=== PATIENT | female | born 1985 | race Caucasian/White ===

== ENCOUNTER → 2017-02-15 | Outpatient (CLI) | payer OTHER ==
--- NOTE | 2017-02-15 07:56 | US ---
EXAMINATION TYPE: US abdomen complete DATE OF EXAM: 02/15/2017 COMPARISON: NONE CLINICAL HISTORY: Abd Pain R10.84. Pt states epigastric pain EXAM MEASUREMENTS: Liver Length: 14.7 cm Gallbladder Wall: 0.2 cm CBD: 0.3 cm Spleen: 9.2 cm Right Kidney: 12.5 x 3.6 x 4.2 cm Left Kidney: 10.4 x 5.5 x 4.4 cm Pancreas: wnl Liver: wnl Gallbladder: wnl Evidence for sonographic Rao's sign: No CBD: wnl Spleen: wnl Right Kidney: wnl Left Kidney: wnl Upper IVC: wnl Abd Aorta: wnl No abnormality visualized to account for pt's symptoms The liver is homogenous. The intrahepatic portion of the IVC and visualized abdominal aorta are with in normal limits. There is no evidence of cholelithiasis. Common bile duct is unremarkable. The vi sualized portions of the pancreas are homogenous. The spleen is unremarkable. Kidneys are symmetric and free of hydronephrosis. No renal lesions are seen. IMPRESSION: No significant abnormality is seen to account for patient's symptoms.
== END | disposition home or self-care (01) ==
LOC: RADUSWWP 07:32
PROVIDERS: ATTEND Family Medicine
DX: R10.84 Generalized abdominal pain (principal)
CPT/HCPCS: 76700

== ENCOUNTER 2021-09-11 01:10 | Outpatient (CLI) | payer OTHER ==
[2021-09-11 02:06] VITALS: BP 127/83; PULSE 103; RESP 16; TEMP 96.6
--- NOTE | 2021-09-11 10:29 | P.MSEPDOC ---
Presenting Problems - Arrival Data Date of Arrival on Unit: 09/11/21 Time of Arrival on Unit: 01:11 Mode of Transport: Ambulatory - Complaint OB-Reason for Admission/Chief Complaint: Possible Onset of Labor Comment: Pt states contractions that started around 2300, every 10 minutes, pain 5/10. Plan to this time Medical History - Information : 3 Para: 1 Term: 1 : 0 Abortions: Spontaneous or Elective: 1 Number of Living Children: 1 - Gestational Age Gestational Age by YANG (wks/days): 40 Weeks and 1 Days - History Complications: Prior Review of Systems - Review of Systems Constitutional: No problems Breast: No problems ENT: No problems Cardiovascular: No problems Respiratory: No problems Gastrointestinal: No problems Genitourinary: No problems Musculoskeletal: No problems Neurological: No problems Skin: No problems Vital Signs - Temperature Temperature: 96.6 F Temperature Source: Temporal Artery Scan - Pulse Right Brachial Pulse Rate: 103 Pulse Assessment Method: Automatic Cuff - Respirations Respiratory Rate: 16 Oxygen Delivery Method: Room Air O2 Sat by Pulse Oximetry: 99 - Blood Pressure Right Arm Blood Pressure: 127/83 Blood Pressure Mean: 97 Blood Pressure Source: Automatic Cuff Medical Screen Scoring - Cervical Exam Dilation (cm): 0 Effacement (%): 0 Station: -3 Membranes: Intact - Uterine Contractions Frequency From (mins): 5 Frequency To (mins): 6 Duration From (seconds): 70 Duration To (seconds): 90 Intensity: Moderate Resting: Soft to palpation - Assessment - Baby A Baseline FHR: 125 Heart Rate - NICHD Category: Category I (Normal) Physician Notification - Physician Notified Physician Notified Date: 09/11/21 Physician Notified Time: 01:39 Physician: Toy Ayala New Order Received: Yes - Notification Comment Comment: Reported vag exam closed, reactive nst. Orders to d/c pt home, follow up with Dr. Tellez on Sunday as planned. Maternal Triage Index - Maternal Triage Index Presenting for scheduled procedure w/no complaint: No - Stat/Priority 1 Stat Priority 1: No - Urgent/Priority 2 Urgent Priority 2: No - Prompt/Priority 3 Prompt Priority 3: No - Non-Urgent/Priority 4 Non-Urgent Priority 4: Yes Criteria Met for Priority 4: Pt states contractions that started around 2300, every 10 minutes, pain 5/10. Plan to this time - Scheduled/Requesting Priority 5 Scheduled/Requesting Priority 5: No Disposition - Disposition OB Disposition: Discharge to home, Written follow up instructions reviewed Discharge Date: 09/11/21 Discharge Time: 01:39 I agree with the RN Medical Screening Exam: Yes Case reviewed; plan agreed upon as documented in EMR&OBIX.: Yes Diagnosis: RELATED CONDITIONS, UNSPECIFIED, THIRD TRIMESTER
== END 2021-09-11 01:39 | disposition home or self-care (01) ==
LOC: FBPOP 01:10
PROVIDERS: ATTEND Obstetrics & Gynecology
DX: O62.9 Abnormality of forces of labor, unspecified (principal); O09.523 Supervision of elderly multigravida, third trimester; Z3A.40 40 weeks gestation of pregnancy; Z88.1 Allergy status to other antibiotic agents
CPT/HCPCS: 59025; G0463; 99213

== ENCOUNTER 2021-09-11 22:05 | Inpatient (IN) | payer OTHER ==
[~2021-09-11 22:05] MED LIST: ROPIVACAINE 5MG/ML 20ML VIAL ONE; SODIUM CHLORIDE 0.9% 100 ML BAG ONE; fentaNYL (PF) 50 MCG/ML 5 ML AMP ONE
[2021-09-11] MEDS: LACTATED RINGERS 1,000 ML IV SCH (22:30)
[2021-09-11] MEDS ORDERED: TERBUTALINE 1 MG/ML VIAL SQ PRN (23:32)
[2021-09-11] MEDS ORDERED: CARBOPROST TROMETHAMINE 250 MCG/ML 1 ML AMP IM PRN (23:32)
[2021-09-11] MEDS ORDERED: LIDOCAINE 1% (PF) 10 MG/ML (30 ML SDV) SQ PRN (23:32)
[2021-09-11] MEDS ORDERED: OXYTOCIN 10 UNIT/ML 1 ML VIAL IM PRN (23:32)
[2021-09-11] MEDS ORDERED: METHYLERGONOVINE 0.2 MG/ML 1 ML AMP IM PRN (23:32)
[2021-09-11] MEDS ORDERED: BUTORPHANOL 1 MG/ML 1 ML VIAL IV PRN (23:41)
[2021-09-11] MEDS ORDERED: OXYTOCIN 30 UNITS/500 ML NS 30 UNIT in SALINE 1 500ML.BAG IV SCH (23:45)
[2021-09-12 00:08] LABS: Basophils % (A) 0 %; Eosinophils # (A) 0.1 k/uL (0-0.7); Eosinophils % (A) 1 %; HCT 39.3 % (34.0-46.0); HGB 13.7 gm/dL (11.4-16.0); Lymphocytes # (A) 1.4 k/uL (1.0-4.8); Lymphocytes % (A) 12 %; MCH 32.1 pg (25.0-35.0); MCHC 34.7 g/dL (31.0-37.0); MCV 92.4 fL (80.0-100.0); Mean Platelet Volume 8.7; Monocytes # (A) 0.7 k/uL (0-1.0); Monocytes % (A) 6 %; Neutrophils # (A) 8.8 k/uL (1.3-7.7); Neutrophils % (A) 80 %; Platelet Count 214 k/uL (150-450); RBC 4.26 m/uL (3.80-5.40); RDW 13.3 % (11.5-15.5); WBC 10.9 k/uL (3.8-10.6)
[2021-09-12] MEDS: LACTATED RINGERS 1,000 ML IV SCH ×3 (02:11→03:56)
--- NOTE | 2021-09-12 08:00 | P.HPOB ---
History of Present Illness H&P Date: 09/12/21 Chief Complaint: Early labor This is a 36-year-old female 3 para 1011 EDC 09/10/2021 at 40-2/7 weeks' gestation who presented last night in early spontaneous labor. Epidural has been placed. She denied vaginal bleeding or fluid leakage. Past medical history is essentially negative. Past surgical history section 2012 for nonreassuring heart tones, low transverse. Current medications vitamins daily. ALLERGIES include amoxicillin to which she reports a rash as a child. Family history significant for skin cancer. history is significant for blood type A positive, rubella status immune. VDRL testing, hepatitis B surface antigen, urine culture, HIV testing, gonorrhea and chlamydia cultures, group B strep cultures all negative. One-hour Glucola 146, three-hour GTT within normal limits. Social history patient is single, her boyfriend Surinder is present and involved. Former tobacco smoker, she denies alcohol or drug use. On exam patient is 5 foot 4 inches, 146 pounds, blood pressure 118/70 on admission, vital signs are stable and she is afebrile. The general physical exam is within normal limits. Cervix is at this time 8 cm dilated, 90% effaced, -1 station, vertex presentation. Artificial amniorrhexis reveals clear fluid. heart rate at this time is consistent with reactive NST, there are occasional subtle mild decelerations noted with uterine contractions. Uterine contractions are occurring every 5-6 minutes apart. Impression: 40-2/7 weeks intrauterine , previous section wishing , active labor. All signs currently reassuring. Plan: Continue close maternal and surveillance. Anticipate healthy vaginal after . Review of Systems Constitutional: Reports as per HPI Past Medical History Past Medical History: No Reported History History of Any Multi-Drug Resistant Organisms: None Reported Past Surgical History: Section Additional Past Surgical History / Comment(s): 12/23/2012 Past Anesthesia/Blood Transfusion Reactions: No Reported Reaction Past Psychological History: No Psychological Hx Reported Smoking Status: Never smoker Past Alcohol Use History: None Reported Past Drug Use History: None Reported - Past Family History Mother Family Medical History: No Reported History Medications and Allergies Home Medications Medication Instructions Recorded Confirmed Type Aspirin [Adult Low Dose Aspirin EC] 1 tab PO DAILY 09/11/21 09/11/21 History Pnv,Calcium 72/Iron/Folic Acid 1 tab PO DAILY 09/11/21 09/11/21 History [ Plus Tablet] Allergies Allergy/AdvReac Type Severity Reaction Status Date / Time amoxicillin Allergy Rash/Hives Verified 09/11/21 22:12 Exam Vital Signs Temp Pulse Resp BP Pulse Ox 09/11/21 23:36 97.0 F L 141 H 16 118/70 96 09/11/21 22:12 97.0 F L 141 H 16 118/70 96 Intake and Output 09/11/21 09/12/21 09/12/21 22:59 06:59 14:59 Other: Weight 65.771 kg 65.771 kg See dictation under HPI please Results Result Diagrams: 09/11/21 22:45 Abnormal Lab Results - Last 24 Hours (Table) 09/11/21 Range/Units 22:45 WBC 10.9 H (3.8-10.6) k/uL Neutrophils # 8.8 H (1.3-7.7) k/uL Assessment and Plan Assessment: Continue close surveillance. Anticipating successful . Time with Patient: Less than 30
[2021-09-12] MEDS ORDERED: diphenhydrAMINE 25 MG CAP PO PRN (13:17)
[2021-09-12] MEDS ORDERED: ACETAMINOPHEN TAB 325 MG TAB PO PRN (13:17)
[2021-09-12] MEDS ORDERED: ZOLPIDEM 5 MG TAB PO PRN (13:17)
[2021-09-12] MEDS ORDERED: LANOLIN CREAM 5 GM TUBE TOPICAL PRN (13:17)
[2021-09-12] MEDS ORDERED: HYDROCORTISONE 2.5% RECTAL CREAM 30 GM TUBE RECTAL PRN (13:17)
[2021-09-12] MEDS ORDERED: SIMETHICONE 80 MG CHEWABLE PO PRN (13:17)
[2021-09-12] MEDS ORDERED: diphenhydrAMINE ELIXIR 25 MG/10 ML CUP PO PRN (13:17)
[2021-09-12] MEDS ORDERED: diphenhydrAMINE 50 MG CAP PO PRN (13:17)
[2021-09-12] MEDS ORDERED: BENZOCAINE/MENTHOL SPRAY 1 GM/SPRAY AEROSOL TOPICAL PRN (13:17)
[2021-09-12] MEDS ORDERED: diphenhydrAMINE 50 MG/ML 1 ML VIAL IVP PRN ×2 (13:17)
--- NOTE | 2021-09-12 13:17 | P.PROBDLV ---
Vaginal Delivery Note - . Vaginal Delivery Note: This is a 36-year-old 3 para 1011 EDC 09/10/2021 at 40-2/7 weeks' gestation who presented from home with spontaneous amniorrhexis, wishing . Blood type is A+, rubella status immune, group B strep cultures negative. Please see my dictated history and physical for details. Oxytocin was started and titrated per hospital protocol. Epidural was placed per her request. She progressed to the first stage of labor and became completely dilated at 1120 hours. She began the second stage of labor at that time. With strong steady contractions ultimately station was made. Perineal body was prepped and draped in usual sterile fashion. The perineal yessy dy was very tense and distended, therefore a small midline episiotomy was performed. 's head delivered at 1255. There was no nuchal cord noted. The left or anterior shoulder was gently delivered from underneath the pubic symphysis at which time the oropharynx, nasopharynx, and external nares were all bulb suctioned. Patient was officially delivered of a liveborn male at 1256 hours. Umbilical cord was doubly clamped and ligated, he was handed to waiting nurses for evaluation where scores of 9 and 9 at one and 5 minutes respectively were given. Placenta delivered spontaneously, it was inspected and noted to be intact with trivascular cord at 1257 hrs. It is sent to pathology for evaluation. Careful inspection of the cervix, vagina, perineum, periurethral, and perirectal areas revealed a small second-degree laceration that was easily repaired in the usual fashion. All sponge needle and enhancement counts are correct at the end of this delivery. Fundus is firm and in the midline, symmetric and 18 week size. weight 8 lbs. 3 oz. or 3710 g. Patient is requesting circumcision for her infant son. She is allowed to begin the bonding experience with her and family.
[2021-09-12] MEDS: IBUPROFEN 600 MG TAB PO SCH ×2 (13:32→20:08)
[2021-09-12] MEDS: SENNOSIDES-DOCUSATE SODIUM 1 EACH TAB PO SCH (20:07)
[2021-09-13] MEDS: IBUPROFEN 600 MG TAB PO SCH ×3 (01:34→12:42)
[2021-09-13] MEDS: SENNOSIDES-DOCUSATE SODIUM 1 EACH TAB PO SCH (07:36)
--- NOTE | 2021-09-13 08:50 | P.DS ---
Providers Date of admission: 09/11/21 23:23 Expected date of discharge: 09/13/21 Attending physician: Ashlyn Tellez Primary care physician: Stated None Hospital Course: EDC 09/10/2021 at 40-2/7 weeks' gestation. Patient presented with spontaneous amniorrhexis, in early labor. Her preference was for , having had a previous section. She was thoroughly counseled regarding this decision. is unremarkable, rubella status immune, blood type B positive, group B strep cultures negative. Please see my dictated history and physical for details. Artificial amniorrhexis of a fore bag revealed clear fluid. Oxytocin was started and titrated per hospital protocol. Epidural was placed per her request. She did go on to deliver vaginally successfully a liveborn male infant with scores of 9 and 9 respectively weight 8 lbs. 3 oz. or 3710 g. There was a small midline episiotomy performed, repaired easily with repeat suture. Estimated blood loss 300 mL's. Please see dictated delivery note for details. This morning the patient is doing well. She is voiding, ambulating, passing flatus without difficulty. Vital signs are stable and she is afebrile. Breast- feeding is going well. [place] infant has been circumcised. Fundus is firm and in the midline, symmetric and 18 week size. Patient is judged to be in very good condition for discharge home. She will follow-up with me in the office in 6 weeks. I have reminded her no intercourse, tampons or douching. She will use [id number] Advil or Aleve, or Motrin as needed for pain. She will call with any fevers shakes or chills, foul smelling or copious lochia, with the passage of large blood clots, with any pain not alleviated by [id number]-[id number] products, or indeed with any concerns. We will discuss contraceptive options in the office when she follows up in 6 weeks. Continue vitamin daily. [place] infant will follow-up with gore maker as per recommendations. Plan - Discharge Summary Discharge Rx Participant: No New Discharge Prescriptions: No Action Pnv,Calcium 72/Iron/Folic Acid [ Plus Tablet] 1 tab PO DAILY Aspirin [Adult Low Dose Aspirin EC] 1 tab PO DAILY Discharge Medication List Aspirin [Adult Low Dose Aspirin EC] 1 tab PO DAILY 09/11/21 [History] Pnv,Calcium 72/Iron/Folic Acid [ Plus Tablet] 1 tab PO DAILY 09/11/21 [History] Follow up Appointment(s)/Referral(s): Ashlyn Tellez MD [STAFF PHYSICIAN] - 6 Weeks Discharge Disposition: HOME SELF-CARE
[2021-09-13 16:20] VITALS: BP 107/68; PULSE 97; RESP 16; TEMP 98.5
== END 2021-09-13 16:45 | disposition home or self-care (01) | DRG 807 ==
LOC: FBPOP 22:05 → 4FBP 23:23
PROVIDERS: ADMIT Obstetrics & Gynecology; ATTEND Obstetrics & Gynecology
PROC: 10E0XZZ Delivery of Products of Conception, External Approach (ICD-10-PCS; principal; 2021-09-12)
PROC: 10907ZC Drainage of Amniotic Fluid, Therapeutic from Products of Conception, Via Natural or Artificial Opening (ICD-10-PCS; 2021-09-12)
PROC: 4A0HXCZ Measurement of Products of Conception, Cardiac Rate, External Approach (ICD-10-PCS; 2021-09-12)
PROC: 3E033VJ Introduction of Other Hormone into Peripheral Vein, Percutaneous Approach (ICD-10-PCS; 2021-09-12)
PROC: 0W8NXZZ Division of Female Perineum, External Approach (ICD-10-PCS; 2021-09-12)
DX: O34.219 Maternal care for unspecified type scar from previous cesarean delivery (principal); Z37.0 Single live birth; Z3A.40 40 weeks gestation of pregnancy; Z79.82 Long term (current) use of aspirin; Z87.891 Personal history of nicotine dependence; Z88.1 Allergy status to other antibiotic agents
CPT/HCPCS: 59025; 85025; 86850; 86900; 86901; 88307; 99213

== ENCOUNTER 2023-10-08 06:00 | Inpatient (IN) | payer OTHER ==
[2023-10-08] MEDS: LACTATED RINGERS 1,000 ML IV SCH (07:05)
[2023-10-08] MEDS ORDERED: LIDOCAINE 0.5% (PF) 5 MG/ML (50 ML SDV) SQ PRN (07:12)
[2023-10-08] MEDS ORDERED: TRANEXAMIC 1,000 MG/100ML-NACL 1,000 MG in EMPTY BAG 1 BAG IV PRN (07:12)
[2023-10-08] MEDS ORDERED: CARBOPROST TROMETHAMINE 250 MCG/ML 1 ML AMP IM PRN (07:12)
[2023-10-08] MEDS ORDERED: miSOPROStoL 200 MCG TAB PO PRN (07:12)
[2023-10-08] MEDS ORDERED: METHYLERGONOVINE 0.2 MG/ML 1 ML AMP IM PRN (07:12)
[2023-10-08] MEDS ORDERED: OXYTOCIN 10 UNIT/ML 1 ML VIAL IM PRN (07:12)
[2023-10-08] MEDS ORDERED: TERBUTALINE 1 MG/ML VIAL SQ PRN (07:12)
[2023-10-08] MEDS: OXYTOCIN 30 UNITS/500 ML NS 30 UNIT in SALINE 1 500ML.BAG IV SCH (07:19)
[2023-10-08 07:54] LABS: Basophils # (A) 0.1 k/uL (0-0.2); Basophils % (A) 1 %; Eosinophils # (A) 0.4 k/uL (0-0.7); Eosinophils % (A) 5 %; HCT 36.1 % (34.0-46.0); HGB 12.6 gm/dL (11.4-16.0); Lymphocytes # (A) 2.2 k/uL (1.0-4.8); Lymphocytes % (A) 30 %; MCH 32.2 pg (25.0-35.0); MCHC 35.1 g/dL (31.0-37.0); MCV 91.8 fL (80.0-100.0); Mean Platelet Volume 8.8; Monocytes # (A) 0.5 k/uL (0-1.0); Monocytes % (A) 7 %; Neutrophils % (A) 56 %; Platelet Count 179 k/uL (150-450); RBC 3.93 m/uL (3.80-5.40); RDW 13.8 % (11.5-15.5); WBC 7.2 k/uL (3.8-10.6)
[2023-10-08 07:56] VITALS: RESP 16
[2023-10-08] MEDS ORDERED: NALBUPHINE 10 MG/ML (10 ML MDV) IV PRN (09:02)
--- NOTE | 2023-10-08 09:07 | P.HPOB ---
History of Present Illness H&P Date: 10/08/23 Chief Complaint: 41-0/7 weeks, induction The patient is a 38-year-old 4 para 2-0-1-2 admitted at 41-0/7 weeks as established by last menstrual period and confirmed by 11-week ultrasound. She is admitted for postdates induction of labor with all signs reassuring. She carries a history of section and her first followed by a successful vaginal trial of labor and her second and has requested a vaginal trial of labor for this . She does fall into the category of advanced maternal age and declined trisomy testing. Her has otherwise been entirely uncomplicated and group B strep status is negative. On labor and delivery, all signs are reassuring with a category 1 heart rate tracing. Obstetrical history: 4 para 2-0-1-2 with 1 term section followed by 1 successful . Current statistics are listed in history of present illness. EDC of 09/30/2023 was established by last menstrual period and confirmed by 11-week ultrasound. Laboratory workup demonstrates a blood type of A+ with a negative antibody screen. Rubella status is immune. The remainder of the laboratory workup was within normal limits. 1 hour Glucola was normal and group B strep status is negative. Gynecologic history: Unremarkable with no history of any infections to include STDs. Review of Systems Review of systems is confined to history of present illness. Past Medical History Past Medical History: No Reported History History of Any Multi-Drug Resistant Organisms: None Reported Past Surgical History: Section Additional Past Surgical History / Comment(s): 12/23/2012 Past Anesthesia/Blood Transfusion Reactions: No Reported Reaction Past Psychological History: No Psychological Hx Reported Smoking Status: Never smoker Past Alcohol Use History: None Reported Past Drug Use History: None Reported - Past Family History Mother Family Medical History: No Reported History Medications and Allergies Home Medications Medication Instructions Recorded Confirmed Type Aspirin [Adult Low Dose Aspirin EC] 1 tab PO DAILY 09/11/21 10/08/23 History Vit No.180/Iron/Folic 1 tab PO DAILY 09/11/21 10/08/23 History [ Plus Tablet] Allergies Allergy/AdvReac Type Severity Reaction Status Date / Time amoxicillin Allergy Rash/Hives Verified 09/11/21 22:12 Exam Vital Signs Temp Pulse Resp BP Pulse Ox 10/08/23 07:10 97.7 F 78 16 112/72 98 Intake and Output 10/07/23 10/08/23 10/08/23 22:59 06:59 14:59 Other: Weight 66.224 kg In general, this is a well-developed, well-nourished white female in no acute distress. Her heart has a regular rhythm and rate without murmur. Her lungs are clear to auscultation bilaterally in all pack. Her abdomen is gravid, nondistended, has normal active bowel sounds, soft, nontender, and without any palpable masses aside from the uterine fundus. Her extremities are without any cyanosis, clubbing, or edema and are nontender to palpation bilaterally. Digital cervical examination demonstrates discharge to be 3 cm dilated, 50% effaced, with the vertex and presentation at -2-3 station. Artificial rupture of membranes is carried out demonstrating clear fluid. Results Result Diagrams: 10/08/23 07:00 Assessment and Plan (1) Previous section Current Visit: Yes Status: Acute Code(s): Z98.891 - HISTORY OF UTERINE SCAR FROM PREVIOUS SURGERY SNOMED Code(s): 147742308 (2) Term Current Visit: Yes Status: Acute Code(s): Z34.90 - ENCNTR FOR SUPRVSN OF NORMAL , UNSP, UNSP TRIMESTER SNOMED Code(s): 37804999 Plan: The patient was admitted for postdates induction of labor. Pitocin augmentation has been started on artificial rupture of membranes carried out. She will have close maternal and surveillance and expectant management will be practiced. She is a good candidate for either IV or epidural analgesia, whichever she may choose.
[2023-10-08] MEDS ORDERED: HYDROcodone/APAP 7.5-325MG 1 EACH TAB PO PRN (13:29)
[2023-10-08] MEDS ORDERED: diphenhydrAMINE 50 MG CAP PO PRN (13:29)
[2023-10-08] MEDS ORDERED: SIMETHICONE 80 MG CHEWABLE PO PRN (13:29)
[2023-10-08] MEDS ORDERED: BENZOCAINE/MENTHOL SPRAY 1 GM/SPRAY AEROSOL TOPICAL PRN (13:29)
[2023-10-08] MEDS ORDERED: HYDROCORTISONE 2.5% RECTAL CREAM 30 GM TUBE RECTAL PRN (13:29)
[2023-10-08] MEDS ORDERED: LANOLIN CREAM 1 GM TUBE TOPICAL PRN (13:29)
[2023-10-08] MEDS ORDERED: diphenhydrAMINE 50 MG/ML 1 ML VIAL IVP PRN ×2 (13:29)
[2023-10-08] MEDS ORDERED: ZOLPIDEM 5 MG TAB PO PRN (13:29)
[2023-10-08] MEDS ORDERED: diphenhydrAMINE 25 MG CAP PO PRN (13:29)
[2023-10-08] MEDS ORDERED: ACETAMINOPHEN TAB 325 MG TAB PO PRN (13:29)
[2023-10-08] MEDS ORDERED: HYDROcodone/APAP 5-325MG 1 EACH TAB PO PRN (13:29)
[2023-10-08] MEDS ORDERED: OXYTOCIN 30 UNITS/500 ML NS 30 UNIT in SALINE 1 500ML.BAG IV SCH (13:30)
--- NOTE | 2023-10-08 13:33 | P.PROBDLV ---
Vaginal Delivery Note - . Vaginal Delivery Note: The patient is a 38-year-old 4 para 2-0-1-2 admitted at 41-0/7 weeks for postdates induction with all signs reassuring, category 1 heart rate tracing. She has a history of a previous section and her first followed by a successful vaginal after section with her last delivery. She has requested trial with this . Her was otherwise uncomplicated and group B strep status is negative. On labor and delivery, she had Pitocin started followed by artificial rupture of membranes for clear fluid. She made fairly rapid progress through the latent phase of labor and had an epidural catheter placed for analgesia. She then progressed fairly quickly through the active phase of labor ultimately to complete and then pushed over the course of 6-8 contractions to a normal spontaneous vaginal delivery of a viable 8 pound 5 ounce baby girl with Apgars of 9 at 1 minute and 9 at 5 minutes delivered in the left occiput anterior position. The placenta was delivered spontaneously, intact, grossly normal with a grossly normal, centrally inserted three-vessel cord. There was a small second-degree midline laceration noted in the site of a previous scar which was repaired in standard fashion using 3-0 chromic catgut without difficulty. Estimated blood loss for the entire case was approximately 100 cc. There were no complications. Both mother and are resting comfortably in recovery.
[2023-10-08] MEDS: IBUPROFEN 600 MG TAB PO PRN (13:48)
[2023-10-08] MEDS: SENNOSIDES-DOCUSATE SODIUM 1 EACH TAB PO SCH (19:58)
[2023-10-09 08:19] LABS: Basophils % (A) 0 %; Eosinophils # (A) 0.3 k/uL (0-0.7); Eosinophils % (A) 2 %; HGB 11.9 gm/dL (11.4-16.0); Lymphocytes # (A) 1.9 k/uL (1.0-4.8); Lymphocytes % (A) 16 %; MCH 31.5 pg (25.0-35.0); MCV 92.9 fL (80.0-100.0); Mean Platelet Volume 8.3; Monocytes # (A) 0.5 k/uL (0-1.0); Monocytes % (A) 5 %; Neutrophils # (A) 8.8 k/uL (1.3-7.7); Neutrophils % (A) 76 %; Platelet Count 164 k/uL (150-450); RBC 3.77 m/uL (3.80-5.40); RDW 13.5 % (11.5-15.5); WBC 11.6 k/uL (3.8-10.6)
--- NOTE | 2023-10-09 08:56 | P.DS ---
Providers Date of admission: 10/08/23 06:45 Expected date of discharge: 10/09/23 Attending physician: Toy Ayala Primary care physician: Stated None - Discharge Diagnosis(es) (1) Previous section Current Visit: Yes Status: Acute (2) Term Current Visit: Yes Status: Acute (3) Normal spontaneous vaginal delivery Current Visit: Yes Status: Acute (4) Vaginal after section Current Visit: Yes Status: Acute Hospital Course: The patient is a 38-year-old 4 para 2011 admitted at 41-0/7 weeks by good dating parameters. She is admitted for postdates induction of labor with all signs reassuring. She has a history of a previous section with 1 successful vaginal delivery following her . She has requested vaginal trial of labor to which I have agreed. On labor delivery, all signs reassuring with category 1 heart rate tracing. Her was otherwise uncomplicated aside from advanced maternal age. Group B strep status was negative. Pitocin augmentation was started and she underwent artificial rupture of membranes for clear fluid. She had an epidural catheter placed around the onset of the active phase of labor. She made fairly rapid progress through the both stages of labor to complete and then pushed to a normal spontaneous vaginal delivery of a viable 8 pound 5 ounce baby girl with Apgars of 9 at 1 minute and 9 at 5 minutes. Her course was unremarkable with vital signs remaining stable and her temperature was afebrile throughout. She was deemed stable for discharge on day #1 was discharged home to follow-up in the office in 6 weeks time routinely. Discharge instructions included calling for any significantly increased bleeding or foul-smelling lochia, significantly increased fever abdominal pain, perineal complaints, breast complaints, or anything else that concerned her. She was additionally instructed to have nothing in the vagina for at least 6 weeks time to include intercourse. She understood her instructions and agrees to follow-up as noted above. Discharge medications included continued vitamins as she has opted to breast- feed. She was otherwise to use [id number] analgesic pain medications as needed. Maternal blood type is a positive and rubella status is immune. Procedures: #1. Pitocin induction #2. Artificial rupture of membranes #3. Epidural analgesia #4. Normal spontaneous vaginal delivery, successful #5. Repair of second-degree perineal laceration Patient Condition at Discharge: Stable Plan - Discharge Summary New Discharge Prescriptions: No Action Vit No.180/Iron/Folic [ Plus Tablet] 1 tab PO DAILY Aspirin [Adult Low Dose Aspirin EC] 1 tab PO DAILY Discharge Medication List Aspirin [Adult Low Dose Aspirin EC] 1 tab PO DAILY 09/11/21 [History] Vit No.180/Iron/Folic [ Plus Tablet] 1 tab PO DAILY 09/11/21 [History] Follow up Appointment(s)/Referral(s): Toy Ayala MD [STAFF PHYSICIAN] - 6 Weeks Discharge Disposition: HOME SELF-CARE
[2023-10-09 12:07] VITALS: BP 121/72; PULSE 81; TEMP 98.3
== END 2023-10-09 17:07 | disposition home or self-care (01) | DRG 560 ==
LOC: 4FBP 06:45
PROVIDERS: ADMIT Obstetrics & Gynecology; ATTEND Obstetrics & Gynecology
PROC: 10E0XZZ Delivery of Products of Conception, External Approach (ICD-10-PCS; principal; 2023-10-08)
PROC: 10907ZC Drainage of Amniotic Fluid, Therapeutic from Products of Conception, Via Natural or Artificial Opening (ICD-10-PCS; 2023-10-08)
PROC: 3E033VJ Introduction of Other Hormone into Peripheral Vein, Percutaneous Approach (ICD-10-PCS; 2023-10-08)
PROC: 0KQM0ZZ Repair Perineum Muscle, Open Approach (ICD-10-PCS; 2023-10-08)
DX: O48.0 Post-term pregnancy (principal); Z37.0 Single live birth; O34.219 Maternal care for unspecified type scar from previous cesarean delivery; O70.1 Second degree perineal laceration during delivery; Z79.82 Long term (current) use of aspirin; Z88.0 Allergy status to penicillin; Z28.310 Unvaccinated for COVID-19; Z3A.41 41 weeks gestation of pregnancy
CPT/HCPCS: 85025; 86850; 86900; 86901

== ENCOUNTER → 2023-12-11 | Outpatient (CLI) | payer OTHER ==
[2023-12-11 19:12] LABS: Basophils # (A) 0.05 X 10*3/uL (0.00-0.10); Basophils % (A) 0.8 %; Eosinophils # (A) 0.28 X 10*3/uL (0.04-0.35); Eosinophils % (A) 4.3 %; Lymphocytes # (A) 2.62 X 10*3/uL (0.90-5.00); Lymphocytes % (A) 40.1 %; MCH 30.2 pg (27.0-32.0); MCHC 33.3 g/dL (32.0-37.0); MCV 90.7 FL (80.0-97.0); Mean Platelet Volume 10.7 FL (9.5-12.2); Monocytes # (A) 0.53 X 10*3/uL (0.20-1.00); Monocytes % (A) 8.1 %; NRBC Per 100 WBC 0 X 10*3/uL (0.00-0.01); Neutrophils # (A) 3.04 X 10*3/uL (1.80-7.70); Neutrophils % (A) 46.4 %; Platelet Count 217 X 10*3/uL (140-440); RBC 4.63 X 10*6/uL (4.10-5.20); RDW 13.1 % (11.5-14.5); WBC 6.54 X 10*3/uL (4.50-10.00)
== END | disposition home or self-care (01) ==
LOC: LABPAT 13:56
PROVIDERS: ATTEND Obstetrics & Gynecology
DX: Z01.812 Encounter for preprocedural laboratory examination (principal)
CPT/HCPCS: 36415; 85025

== ENCOUNTER → 2024-01-29 | Outpatient (CLI) | payer OTHER ==
[2024-01-29 18:52] LABS: HCT 41.2 % (37.2-46.3); HGB 13.9 g/dL (12.0-15.0); MCH 30.8 pg (27.0-32.0); MCHC 33.7 g/dL (32.0-37.0); MCV 91.4 FL (80.0-97.0); Mean Platelet Volume 10.9 FL (9.5-12.2); NRBC Per 100 WBC 0 X 10*3/uL (0.00-0.01); Platelet Count 244 X 10*3/uL (140-440); RBC 4.51 X 10*6/uL (4.10-5.20); RDW 12.9 % (11.5-14.5); WBC 7.95 X 10*3/uL (4.50-10.00)
[2024-01-29 18:53] LABS: Basophils # (A) 0.06 X 10*3/uL (0.00-0.10); Basophils % (A) 0.8 %; Lymphocytes # (A) 2.39 X 10*3/uL (0.90-5.00); Lymphocytes % (A) 30.1 %; Monocytes # (A) 0.55 X 10*3/uL (0.20-1.00); Monocytes % (A) 6.9 %; Neutrophils # (A) 4.53 X 10*3/uL (1.80-7.70); Neutrophils % (A) 56.9 %
== END | disposition home or self-care (01) ==
LOC: LABPAT 15:56
PROVIDERS: ATTEND Obstetrics & Gynecology
DX: Z01.812 Encounter for preprocedural laboratory examination (principal)
CPT/HCPCS: 85025

== ENCOUNTER → 2024-02-08 | Day surgery (SDC) | payer OTHER ==
--- NOTE | 2024-01-02 09:54 | HP ---
HISTORY AND PHYSICAL DATE OF SCHEDULED SURGERY: 01/03/2024. HISTORY OF PRESENT ILLNESS: The patient is a 38-year-old 4, para 2-0-1-2 who was recently seen in the office for a examination and has requested permanent sterilization with tubal ligation. We had a long discussion regarding options for types of tubal ligation and she has ultimately settled on bilateral salpingectomy. PAST MEDICAL HISTORY: None. PAST SURGICAL HISTORY: Significant only for section in 2012. OBSTETRICAL HISTORY: 4, para 2-0-1-2 with 1 section and 1 successful vaginal after section. She did have 1 early elective interruption of . GYNECOLOGIC HISTORY: Unremarkable with no history of any infections to include STDs. FAMILY HISTORY: Noncontributory. 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 She is an occasional smoker. She denies any significant alcohol or any other social concerns. CURRENT MEDICATIONS: Include only vitamins. ALLERGIES: Amoxicillin caused a rash as an infant. REVIEW OF SYSTEMS: Confined to history of present illness. PHYSICAL EXAMINATION: VITAL SIGNS: Stable. The patient is afebrile. GENERAL: This is a well-developed, well-nourished white female, in no acute distress. HEART: Has a regular rhythm and rate without murmur. LUNGS: Clear to auscultation bilaterally in all pack. ABDOMEN: Nondistended, has normoactive bowel sounds, soft, nontender, without any palpable masses, hepatosplenomegaly, or hernias. EXTREMITIES: Without any cyanosis, clubbing, or edema and are nontender to palpation bilaterally. PELVIC: Demonstrates normal external genitalia and BUS with normal vaginal mucosa and cervix. There is no cervical motion tenderness. Uterus is 4 weeks in size, retroverted, mobile, nontender, normal in shape. The adnexa are normal nontender without mass bilaterally. ASSESSMENT AND PLAN: Multiparity, undesired fertility: We discussed reversible methods, but the patient has requested permanent sterilization. We discussed options for type of sterilization including Filshie clips versus bilateral salpingectomy. The patient has chosen laparoscopic bilateral salpingectomy. The risks and complications of the procedure have been thoroughly discussed including risk for bleeding, bleeding requiring transfusion, infection, and injury to local structures to specifically include the bowel, bladder, and ureters. She has understood all these concerns and has agreed to proceed. We are scheduled for the procedure as outlined above on the morning of 01/03/2024. MMODL / IJN: [id number] /
--- NOTE | 2024-02-06 01:03 | HP ---
HISTORY AND PHYSICAL DATE OF SCHEDULED SURGERY: 02/08/2024 HISTORY OF PRESENT ILLNESS: The patient is a 38-year-old 4, para 3-0-1-3, who was recently seen in the office for exam and requested permanent sterilization with tubal ligation. We had a long discussion regarding options for tubal ligation and she has ultimately settled on having bilateral salpingectomy performed. She is aware of the permanent nature. PAST MEDICAL HISTORY: None. PAST SURGICAL HISTORY: Significant only for section in 2012. OBSTETRICAL HISTORY: 4, para 3-0-1-3 with 1 section and 2 successful vaginal births after section and 1 early elective interruption of . GYNECOLOGIC HISTORY: Unremarkable with no history of any infections to include STDs. FAMILY HISTORY: Noncontributory. 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 She reports occasional smoking and denies any other significant social concerns. CURRENT MEDICATIONS: Include only vitamins. ALLERGIES: Amoxicillin caused a rash as an . REVIEW OF SYSTEMS: Confined to history of present illness. PHYSICAL EXAMINATION: VITAL SIGNS: Stable. The patient is afebrile. GENERAL: In general, this is a well-developed, well-nourished white female, in no acute distress. HEART: Regular rhythm and rate without murmur. LUNGS: Clear to auscultation bilaterally in all pack. ABDOMEN: Nondistended, has normoactive bowel sounds, soft, nontender, and without any palpable masses, hepatosplenomegaly, or hernias. EXTREMITIES: Without any cyanosis, clubbing, edema, and are nontender to palpation bilaterally. PELVIC: Examination demonstrates normal external genitalia and BUS with normal vaginal mucosa. CERVIX: There is no cervical motion tenderness. The uterus is approximately 4 weeks in size, retroverted, mobile, nontender, normal in shape. The adnexa are normal and nontender without mass bilaterally. ASSESSMENT/PLAN: Multiparity with undesired fertility: We discussed multiple reversible methods of contraception. The patient has requested permanent sterilization. We discussed types of sterilization and she has chosen bilateral salpingectomy. The risks and complications of the procedure have been thoroughly discussed including risk for bleeding, bleeding requiring transfusion, infection, injury to local structures to specifically include the risk for injury to the bowel, bladder, and ureters. She understood all these concerns and has agreed to proceed. MMODL / IJN: [id number] /
[~2024-02-08] MED LIST changes: +ACETAMINOPHEN TAB 325 MG TAB PO PRN; +Acetaminophen-Codeine 300-30mg TAB PO PRN; +GLYCOPYRROLATE 0.2 MG/ML 2 ML VIAL ONE; +IBUPROFEN 600 MG TAB PO PRN; +KETOROLAC 15 MG/ML 1 ML VIAL IVP PRN; +KETOROLAC 15 MG/ML 1 ML VIAL ONE; +LACTATED RINGERS 1,000 ML IV SCH; +LIDOCAINE 1% INJ 10MG/ML (20 ML MDV) ONE; +METOCLOPRAMIDE 5 MG/ML 2 ML VIAL IVP PRN; +MIDAZOLAM 2 MG/2 ML VIAL IV PRN; +NEOSTIGMINE 1 MG/ML 10 ML VIAL ONE; +ONDANSETRON 4 MG/2 ML VIAL IVP PRN; +PROPOFOL 10 MG/ML 20 ML VIAL IV ONE; +Pre Op ABX Message 1 EACH MISC MISCELLANE ONE; +ROCURONIUM 10 MG/ML (5 ML VIAL) IV ONE; -ROPIVACAINE 5MG/ML 20ML VIAL ONE; +SIMETHICONE 80 MG CHEWABLE PO PRN; -SODIUM CHLORIDE 0.9% 100 ML BAG ONE; +SUCCINYLCHOLINE CHLORIDE 200 MG/10 ML VIAL IV ONE; +diphenhydrAMINE 50 MG/ML 1 ML VIAL IVP PRN; +fentaNYL (PF) 50 MCG/ML 2 ML AMP ONE; -fentaNYL (PF) 50 MCG/ML 5 ML AMP ONE
[2024-02-08] MEDS: IV FLUID CONTINUATION 1,000 ML IV ONE (08:33)
[2024-02-08] MEDS: DEXAMETHASONE SOD PHOSPHATE 4 MG/ML 1 ML VIAL IV ONE (08:34)
[2024-02-08] MEDS: ONDANSETRON 4 MG/2 ML VIAL IVP ONE (08:34)
[2024-02-08] MEDS: LACTATED RINGERS 1,000 ML IV SCH (08:34)
[2024-02-08] MEDS: LIDOCAINE 1% (10MG/ML) FOR IV START INTRADERMA PRN (08:34)
[2024-02-08] MEDS: BUPIVACAINE (PF) 0.25% 30 ML VIAL SQ ONE (11:00)
--- NOTE | 2024-02-08 11:37 | P.OP ---
Date of Procedure: 02/08/24 Preoperative Diagnosis: #1. Undesired fertility #2. Multiparity Postoperative Diagnosis: Same Procedure(s) Performed: #1. Laparoscopic bilateral salpingectomy Anesthesia: DAMARIA Surgeon: Toy Ayala Estimated Blood Loss (ml): 5 IV fluids (ml): 500 Urine output (ml): 100 Pathology: other (Bilateral fallopian tubes) Condition: stable Disposition: PACU Operative Findings: Preoperative pelvic examination demonstrated a 4 to 5-week retroverted mobile normal shaped uterus with normal adnexa bilaterally. Intraoperatively, the uterus, tubes, and ovaries were entirely normal to inspection. There was no evidence of pathology in the pelvis to include endometriosis. The appendix, small bowel, large bowel were all normal to inspection where seen. The liver and diaphragm were also normal to inspection. The fallopian tubes were removed from their fimbriated end to the cornual junction, the left tube intact while the right tube was incidentally transected in the midportion. The infundibulopelvic ligaments were intact bilaterally. Description of Procedure: The patient was prepped and draped in usual fashion after general endotracheal anesthesia was administered by the anesthesiologist. A speculum was placed in the anterior lip of the cervix was grasped with a single-tooth tenaculum allowing placement of an acorn cannula without difficulty. This was used for intraoperative manipulation. The bladder was drained of approximately 100 cc of clear keisha urine. The attention was then turned to the abdomen where a 5 mm incision was made in a semilunar fold of the umbilicus along insertion of a 5 mm optical trocar under direct visualization without difficulty. A pneumoperitoneum was infused and Trendelenburg positioning utilized. A site was selected in the left lower quadrant approximately 5 cm inferior to the optical port where a 5 mm incision was made in the transverse plane along insertion of a 5 mm port under direct visualization without difficulty. A mirroring port was placed in the right lower quadrant. The blunt probe was used to sweep the bowel from the pelvis and the findings are as noted above. After adequate observation with no evidence of pathology, the probe was set aside in favor of a grasper which was utilized to grasp the left fallopian tube at its fimbriated end and elevated. A LigaSure device was utilized to remove the fallopian tube from the fimbriated end to the cornual junction with the uterus leaving the infundibulopelvic ligament intact. The fallopian tube was then removed through one of the ports and sent for pathological diagnoses to be with the other fallopian tube in the same specimen. Attention was turned to the right side where similar operations were carried out with minimal difficulty. In the central portion of the fallopian tube was incidentally transected so was removed in 2 parts but still entirely removed with the infundibulopelvic ligament left intact. Examination of the surgical sites demonstrated no ongoing bleeding. The upper abdomen had already been explored with no evidence of pathology throughout. The entire pneumoperitoneum was evacuated through the 3 ports and then the ports removed. The incisions were closed with interrupted subcuticular stitches of 4-0 Vicryl followed by half-inch Steri-Strips placed with Mastisol. The 3 incisions were infused with a total of 10 cc of half percent Marcaine equally divided among the 3 incisions. Estimated blood loss for the case was 5 cc or less. There were no complications. All sponge, instrument, and needle counts were correct. The patient tolerated the procedure well and proceeded to the recovery room in stable condition.
[2024-02-08 11:41] VITALS: TEMP 97
[2024-02-08] MEDS: HYDROmorphone 0.5 MG/0.5 ML SYRINGE IVP PRN (11:52)
[2024-02-08 12:10] VITALS: RESP 16
[2024-02-08 13:16] VITALS: BP 112/62; PULSE 67
== END | disposition home or self-care (01) ==
LOC: OR 08:03
PROVIDERS: ATTEND Obstetrics & Gynecology
DX: Z30.2 Encounter for sterilization (principal); Z64.1 Problems related to multiparity; Z88.0 Allergy status to penicillin; F17.200 Nicotine dependence, unspecified, uncomplicated
CPT/HCPCS: 58661; 81025; 88302; J0330; J1100; J2710; J2405; J2001; J3010; J1885; J2704; J1170; J0665; J1596